=== PATIENT | female | born 2000 ===

== ENCOUNTER 2023-09-02 11:24 | Emergency (ER) | payer OTHER ==
[~2023-09-02] VITALS: Ht 162.6 cm; Wt 71.7 kg
[2023-09-02 12:20] VITALS: BP 113/53; PULSE 73; RESP 16
== END 2023-09-02 13:06 | disposition home or self-care (01) ==
LOC: EDH 11:24
DX: Z32.01 Encounter for pregnancy test, result positive (principal)
CPT/HCPCS: 99281